=== PATIENT | female | born 1960 | race Caucasian/White ===

== ENCOUNTER 2018-06-26 00:34 | Emergency (ER) | payer OTHER ==
[2018-06-26] MEDS ORDERED: NS 1,000 ML IV ONE (00:51)
--- NOTE | 2018-06-26 01:07 | EDPHY ---
H & P Stated Complaint: N/V/D Time Seen by Provider: 06/26/18 00:44 HPI/ROS: HPI The patient presents brought in by ambulance for nausea, vomiting, diarrhea which started this afternoon. She thought it was related to an herbal supplement she is taking for chronic Lyme disease. However her symptoms persisted. She initially had nausea and vomiting and then developed diarrhea in the afternoon. She did not have any hematemesis or bloody stools. She felt better for for a few hours, however when going to bed she developed nausea and vomiting again. She hyperventilated, felt dizzy and very unwell and asked her roommate to call 911. Now she is feeling a bit better. She does not have any fever, sick contacts, new foods, travel outside of the country . REVIEW OF SYSTEMS 10 systems were reviewed and negative with the exception of the elements mentioned in the history of present illness. PMHx: Chronic Lyme disease reported Soc Hx: Recently moved from the [facility] PHYSICAL General Appearance: Alert, no distress Eyes: Pupils equal and round no pallor or injection ENT, Mouth: Mucous membranes moist Respiratory: There are no retractions, lungs are clear to auscultation Cardiovascular: Regular rate and rhythm Gastrointestinal: Abdomen is soft and non-tender, no masses, bowel sounds normal Neurological: A&O, moves all extremities Skin: Warm and dry, no rashes Musculoskeletal: Neck is supple non tender Extremities: symmetrical, full range of motion Psychiatric: Patient is oriented X 3, there is no agitation Source: Patient Exam Limitations: No limitations - Personal History Current Tetanus Diphtheria and Acellular Pertussis (TDAP): Unsure - Medical/Surgical History Hx Asthma: No Hx Chronic Respiratory Disease: No Hx Diabetes: No Hx Cardiac Disease: No Hx Renal Disease: No Hx Cirrhosis: No Hx Alcoholism: No Hx HIV/AIDS: No Hx Splenectomy or Spleen Trauma: No - Social History Smoking Status: Never smoked Constitutional: Initial Vital Signs Temperature (C) 36.7 C 06/26/18 00:42 Heart Rate 86 06/26/18 00:42 Respiratory Rate 18 06/26/18 00:42 Blood Pressure 116/62 06/26/18 00:42 O2 Sat (%) 96 06/26/18 00:42 O2 Delivery Mode Room Air Allergies/Adverse Reactions: diphenhydramine [From Benadryl] Allergy (Verified 06/26/18 00:41) Sulfa (Sulfonamide Antibiotics) Allergy (Verified 06/26/18 00:38) Home Medications: Medication Instructions Recorded NK [No Known Home Meds] 06/26/18 Medical Decision Making Differential Diagnosis: This is a 58-year-old healthy female who presents with 1 day of nausea, vomiting , diarrhea. Here, she has normal vital signs, mucous membranes are dry, abdominal exam is benign. Differential diagnosis includes viral gastroenteritis, toxin mediated enterocolitis, less likely appendicitis. In the emergency department patient received IV fluids and Zofran. She felt much better after this. Labs were checked and were unremarkable. She was observed for several hours. She was eventually able to tolerate p.o. And was discharged home. Suspect gastroenteritis. - Data Points Laboratory Results: Laboratory Results 06/26/18 01:05 06/26/18 01:05 06/26/18 06/26/18 01:05 01:05 WBC 9.05 10^3/uL 10^3/uL (3.80-9.50) RBC 4.67 10^6/uL 10^6/uL (4.18-5.33) Hgb 13.4 g/dL g/dL (12.6-16.3) Hct 40.8 % % (38.0-47.0) MCV 87.4 fL fL (81.5-99.8) MCH 28.7 pg pg (27.9-34.1) MCHC 32.8 g/dL g/dL (32.4-36.7) RDW 12.6 % % (11.5-15.2) Plt Count 321 10^3/uL 10^3/uL (150-400) MPV 8.8 fL fL (8.7-11.7) Neut % (Auto) 93.2 % H % (39.3-74.2) Lymph % (Auto) 3.9 % L % (15.0-45.0) Faulk % (Auto) 2.3 % L % (4.5-13.0) Eos % (Auto) 0.1 % L % (0.6-7.6) Baso % (Auto) 0.3 % % (0.3-1.7) Nucleat RBC Rel Count 0.0 % % (0.0-0.2) Absolute Neuts (auto) 8.43 10^3/uL H 10^3/uL (1.70-6.50) Absolute Lymphs (auto) 0.35 10^3/uL L 10^3/uL (1.00-3.00) Absolute Monos (auto) 0.21 10^3/uL L 10^3/uL (0.30-0.80) Absolute Eos (auto) 0.01 10^3/uL L 10^3/uL (0.03-0.40) Absolute Basos (auto) 0.03 10^3/uL 10^3/uL (0.02-0.10) Absolute Nucleated RBC 0.00 10^3/uL 10^3/uL (0-0.01) Immature Gran % 0.2 % % (0.0-1.1) Immature Gran # 0.02 10^3/uL 10^3/uL (0.00-0.10) RBC/WBC/PLT Morphology TNP Platelet Estimate TNP Sodium 137 mEq/L mEq/L (135-145) Potassium 3.6 mEq/L mEq/L (3.5-5.2) Chloride 102 mEq/L mEq/L (97-110) Carbon Dioxide 23 mEq/l mEq/l (22-31) Anion Gap 12 mEq/L mEq/L (6-14) BUN 17 mg/dL mg/dL (7-23) Creatinine 0.7 mg/dL mg/dL (0.6-1.0) Estimated GFR > 60 Glucose 133 mg/dL H mg/dL (70-100) Calcium 9.3 mg/dL mg/dL (8.5-10.4) Total Bilirubin 1.0 mg/dL mg/dL (0.1-1.4) Conjugated Bilirubin 0.2 mg/dL mg/dL (0.0-0.5) Unconjugated Bilirubin 0.8 mg/dL mg/dL (0.0-1.1) AST 27 IU/L IU/L (14-46) ALT 38 IU/L IU/L (9-52) Alkaline Phosphatase 75 IU/L IU/L (38-126) Total Protein 6.9 g/dL g/dL (6.3-8.2) Albumin 4.2 g/dL g/dL (3.5-5.0) Medications Given: Discontinued Medications Sodium Chloride (Ns) 1,000 mls @ 0 mls/hr IV EDNOW ONE; Wide Open PRN Reason: Protocol Stop: 06/26/18 00:52 Last Admin: 06/26/18 01:07 Dose: 1,000 mls Ondansetron HCl (Zofran) 2 mg IVP EDNOW ONE Stop: 06/26/18 02:45 Last Admin: 06/26/18 02:47 Dose: 2 mg Ondansetron HCl (Zofran) 4 mg IVP EDNOW ONE Stop: 06/26/18 06:03 Last Admin: 06/26/18 06:05 Dose: 4 mg Ondansetron HCl (Zofran Odt 4 Mg Prepack#2) 1 btl TAKEHOME EDNOW ONE Stop: 06/26/18 06:20 Last Admin: 06/26/18 06:22 Dose: 1 btl Departure - Departure Disposition: Home, Routine, Self-Care Clinical Impression: Nausea, vomiting, and diarrhea Condition: Good Instructions: Ondansetron (By mouth), Acute Nausea and Vomiting (ED) Additional Instructions: Please make sure to drink plenty of fluids. You can return to the emergency department if your worse in any way. Referrals: NONE *PRIMARY CARE P,. [Primary Care Provider] - As per Instructions
[2018-06-26 01:19] LABS: PLATELET COUNT 321 10^3/uL (150-400)
[2018-06-26] MEDS ORDERED: ONDANSETRON 4 MG/2 ML VIAL ONE (02:13)
[2018-06-26] MEDS ORDERED: ONDANSETRON 4 MG/2 ML VIAL IVP ONE ×2 (02:44→06:02)
[2018-06-26 06:03] VITALS: BP 101/65
[2018-06-26] MEDS ORDERED: ONDANSETRON 4MG PREPACK#2 BTL TAKEHOME ONE (06:19)
== END 2018-06-26 06:24 | disposition home or self-care (01) ==
LOC: EDUNIT#
DX: R11.2 Nausea with vomiting, unspecified (principal); R19.7 Diarrhea, unspecified; A69.20 Lyme disease, unspecified; E86.9 Volume depletion, unspecified
CPT/HCPCS: 96361; 96374; 96376; 99284; J2405

== ENCOUNTER → 2018-08-29 | Outpatient (CLI) | payer OTHER, MEDICAID | LOC: FIMAGING 15:02 | PROVIDERS: ATTEND Specialist | DX: M77.8 Other enthesopathies, not elsewhere classified (principal); S53.431A Radial collateral ligament sprain of right elbow, initial encounter ==

== ENCOUNTER → 2018-10-05 | Outpatient (CLI) | payer OTHER, MEDICAID | LOC: FIMAGING 11:55 | PROVIDERS: ATTEND Internal Medicine | DX: N70.11 Chronic salpingitis (principal); N83.291 Other ovarian cyst, right side ==

== ENCOUNTER → 2018-11-25 | Outpatient (CLI) | payer OTHER, MEDICAID | LOC: FIMAGING 12:22 | PROVIDERS: ATTEND Obstetrics & Gynecology | DX: M81.0 Age-related osteoporosis without current pathological fracture (principal) ==